=== PATIENT | female | born 1980 | race Caucasian/White ===

== ENCOUNTER 2024-04-02 13:40 | Emergency (ER) | payer SELFPAY ==
[2024-04-02 15:33] LABS: BASOPHILS ABSOLUTE AUTO 0.04 K/uL (0.00-0.20); BASOPHILS PERCENT AUTO 0.5 % (0.0-1.0); EOSINOPHILS ABSOLUTE AUTO 0.23 K/uL (0.00-0.45); HEMATOCRIT 45.8 % (37.0-47.0); HEMOGLOBIN 15.2 g/dL (12.0-16.0); IMMATURE GRAN ABSOLUTE AUTO 0.01 K/uL (0.00-0.05); IMMATURE GRAN PERCENT AUTO 0.1 % (0.0-0.4); LYMPHOCYTES ABSOLUTE AUTO 2.37 K/uL (1.00-4.80); LYMPHOCYTES PERCENT AUTO 30.9 % (24.0-44.0); MEAN CORPUSCULAR HEMOGLOBIN 29.5 pg (28.0-32.0); MEAN CORPUSCULAR HGB CONC 33.2 g/dL (32.0-36.0); MEAN CORPUSCULAR VOLUME 88.9 fL (83.0-99.0); MEAN PLATELET VOLUME 9.3 fL (9.4-12.3); MONOCYTES ABSOLUTE AUTO 0.65 K/uL (0.00-0.80); MONOCYTES PERCENT AUTO 8.5 % (0.0-8.0); NEUTROPHILS ABSOLUTE AUTO 4.37 K/uL (1.80-7.70); PLATELET COUNT,PLT 326 K/uL (150-400); RED BLOOD CELL COUNT 5.15 M/uL (4.10-5.30); WHITE BLOOD CELL COUNT,WBC 7.67 K/uL (3.9-11.3)
[2024-04-02] MEDS: Ketorolac 30 MG/ML SDV IVPUSH ONE (15:42)
[2024-04-02] MEDS: Ondansetron 4 MG/2 ML SDV IVPUSH ONE (15:42)
[2024-04-02] MEDS: Sodium Chloride 0.9% 1,000 ML IV ONE (15:42)
[2024-04-02] MEDS: LORazepam 2 MG/ML SDV IVPUSH ONE (15:42)
[2024-04-02] MEDS: Metoclopramide 5 MG Tab PO ONE (15:51)
[2024-04-02] MEDS: diphenhydrAMINE 50 MG/ML SDV IVPUSH ONE (15:51)
[2024-04-02 15:56] LABS: A/G RATIO 1.1 (0.9-1.6); ALBUMIN 3.4 g/dL (3.4-5.0); BILIRUBIN TOTAL 0.2 mg/dL (0.2-1.0); CALCIUM 8.4 mg/dL (8.5-10.1); CARBON DIOXIDE,CO2 28.3 mmol/L (21.0-32.0); EST CRCL DRUG DOSING (CG) 61.35 mL/min; MAGNESIUM 1.9 mg/dL (1.8-2.4); POTASSIUM,K 4.3 mmol/L (3.5-5.1); PROTEIN TOTAL,TP 6.6 g/dL (6.4-8.2)
== END 2024-04-02 17:04 | disposition home or self-care (01) ==
LOC: MW.ED 13:40
DX: G43.909 Migraine, unspecified, not intractable, without status migrainosus (principal); Z75.8 Other problems related to medical facilities and other health care; F17.210 Nicotine dependence, cigarettes, uncomplicated; Z88.5 Allergy status to narcotic agent; Z79.899 Other long term (current) drug therapy; Z90.710 Acquired absence of both cervix and uterus
CPT/HCPCS: 36415; 80053; 83735; 85025; 96361; 96374; 96375; 99283; J1885; J2060; J2405; J7030; 99284

== ENCOUNTER 2024-05-05 14:10 | Emergency (ER) | payer MEDICAID ==
[2024-05-05 15:28] LABS: CORONAVIRUS COVID-19 NAA POSITIVE (NEGATIVE); INFLUENZA A NAA NEGATIVE (NEGATIVE); INFLUENZA B NAA NEGATIVE (NEGATIVE); RESPIRATORY SYNCYTIAL VIR NAA NEGATIVE (NEGATIVE)
== END 2024-05-05 16:27 | disposition home or self-care (01) ==
LOC: MW.ED 14:10
DX: U07.1 COVID-19 (principal); Z79.84 Long term (current) use of oral hypoglycemic drugs; Z79.899 Other long term (current) drug therapy; Z88.5 Allergy status to narcotic agent
CPT/HCPCS: 0241U; 71045; 87651; 99284; 99283

== ENCOUNTER 2024-06-01 19:43 | Emergency (ER) | payer MEDICAID ==
[2024-06-01 20:19] LABS: BASOPHILS ABSOLUTE AUTO 0.04 K/uL (0.00-0.20); BASOPHILS PERCENT AUTO 0.3 % (0.0-1.0); EOSINOPHILS ABSOLUTE AUTO 0.17 K/uL (0.00-0.45); EOSINOPHILS PERCENT AUTO 1.5 % (0.0-6.0); HEMATOCRIT 44.5 % (37.0-47.0); HEMOGLOBIN 15.1 g/dL (12.0-16.0); IMMATURE GRAN ABSOLUTE AUTO 0.07 K/uL (0.00-0.05); IMMATURE GRAN PERCENT AUTO 0.6 % (0.0-0.4); LYMPHOCYTES ABSOLUTE AUTO 2.92 K/uL (1.00-4.80); LYMPHOCYTES PERCENT AUTO 25.5 % (24.0-44.0); MEAN CORPUSCULAR HEMOGLOBIN 30.1 pg (28.0-32.0); MEAN CORPUSCULAR HGB CONC 33.9 g/dL (32.0-36.0); MEAN CORPUSCULAR VOLUME 88.6 fL (83.0-99.0); MONOCYTES ABSOLUTE AUTO 0.98 K/uL (0.00-0.80); MONOCYTES PERCENT AUTO 8.6 % (0.0-8.0); NEUTROPHILS ABSOLUTE AUTO 7.25 K/uL (1.80-7.70); NEUTROPHILS PERCENT AUTO 63.5 % (41.0-71.0); PLATELET COUNT,PLT 332 K/uL (150-400); RED BLOOD CELL COUNT 5.02 M/uL (4.10-5.30); WHITE BLOOD CELL COUNT,WBC 11.43 K/uL (3.9-11.3)
[2024-06-01 20:20] LABS: BASE EXCESS VENOUS -2.6 (-2.0-3.0); BICARBONATE,VENOUS 24 mEQ/mL (22-28); PCO2 VENOUS 46 mmHG (41-51); PH,VENOUS 7.32 (7.31-7.41)
[2024-06-01 20:29] LABS: PO2 VENOUS < 30 mmHG (35-45)
[2024-06-01 20:40] LABS: CORONAVIRUS COVID-19 NAA NEGATIVE (NEGATIVE); INFLUENZA A NAA NEGATIVE (NEGATIVE); INFLUENZA B NAA NEGATIVE (NEGATIVE); RESPIRATORY SYNCYTIAL VIR NAA NEGATIVE (NEGATIVE)
[2024-06-01 21:05] LABS: A/G RATIO 0.9 (0.9-1.6); ALBUMIN 3.6 g/dL (3.4-5.0); BILIRUBIN TOTAL 0.3 mg/dL (0.2-1.0); CALCIUM 8.8 mg/dL (8.5-10.1); CARBON DIOXIDE,CO2 25.8 mmol/L (21.0-32.0); CREATININE 1.2 mg/dL (0.6-1.0); EST CRCL DRUG DOSING (CG) 48.97 mL/min; MAGNESIUM 2.1 mg/dL (1.8-2.4); POTASSIUM,K 4.1 mmol/L (3.5-5.1); PROTEIN TOTAL,TP 7.4 g/dL (6.4-8.2)
[2024-06-01] MEDS: Dexamethasone 4 MG Tab PO ONE (22:42)
== END 2024-06-01 22:51 | disposition home or self-care (01) ==
LOC: MW.ED 19:43
DX: J40 Bronchitis, not specified as acute or chronic (principal); U09.9 Post COVID-19 condition, unspecified; F17.290 Nicotine dependence, other tobacco product, uncomplicated; Z90.49 Acquired absence of other specified parts of digestive tract; Z90.710 Acquired absence of both cervix and uterus; Z79.899 Other long term (current) drug therapy; Z79.84 Long term (current) use of oral hypoglycemic drugs; Z88.5 Allergy status to narcotic agent
CPT/HCPCS: 0241U; 36415; 71046; 80053; 82803; 83735; 83880; 84484; 85025; 85379; 93005; 99285; J8540; 93010; 99283

== ENCOUNTER 2024-06-20 08:17 | Day surgery (SDC) | payer MEDICAID ==
[~2024-06-20 08:17] MED LIST: Sodium Chloride 0.9% 10 ML Syringe FLUSH PRN; Sodium Chloride 0.9% 2.5 ML Syringe FLUSH PRN; Sodium Chloride 0.9% 20 ML SDV IV PRN
[2024-06-20] MEDS: Lactated Ringers 1,000 ML IV SCH (08:57)
[2024-06-20] MEDS ORDERED: propofoL 50 ML ONE (09:56)
== END 2024-06-20 11:03 | disposition home or self-care (01) ==
LOC: MW.SDS 08:17
PROVIDERS: ATTEND Surgery
DX: Z12.11 Encounter for screening for malignant neoplasm of colon (principal); Z80.0 Family history of malignant neoplasm of digestive organs; E66.01 Morbid (severe) obesity due to excess calories; Z68.41 Body mass index [BMI] 40.0-44.9, adult
CPT/HCPCS: 45378; J2704; J7120; 00812

== ENCOUNTER 2024-11-04 21:06 | Emergency (ER) | payer MEDICAID ==
[2024-11-04] MEDS ORDERED: Sodium Chloride 0.9% 2.5 ML Syringe FLUSH PRN (21:52)
[2024-11-04] MEDS ORDERED: Sodium Chloride 0.9% 10 ML Syringe FLUSH PRN (21:52)
[2024-11-04] MEDS: droPERidol 2.5 MG/ML SDV IVPUSH ONE (21:59)
[2024-11-04] MEDS: Sodium Chloride 0.9% 1,000 ML IV ONE (22:01)
[2024-11-04] MEDS: Magnesium Sulf/Wat 2 GM/50 mL 2 GM in Premix Bag 1 BAG IV ONE (22:01)
[2024-11-04] MEDS: Ketorolac 30 MG/ML SDV IVPUSH ONE (22:01)
[2024-11-04 22:16] LABS: BASOPHILS ABSOLUTE AUTO 0.05 K/uL (0.00-0.20); BASOPHILS PERCENT AUTO 0.4 % (0.0-1.0); EOSINOPHILS ABSOLUTE AUTO 0.26 K/uL (0.00-0.45); EOSINOPHILS PERCENT AUTO 2.2 % (0.0-6.0); HEMATOCRIT 44.6 % (37.0-47.0); HEMOGLOBIN 14.7 g/dL (12.0-16.0); IMMATURE GRAN ABSOLUTE AUTO 0.04 K/uL (0.00-0.05); IMMATURE GRAN PERCENT AUTO 0.3 % (0.0-0.4); MEAN CORPUSCULAR HEMOGLOBIN 30.1 pg (28.0-32.0); MEAN CORPUSCULAR VOLUME 91.4 fL (83.0-99.0); MEAN PLATELET VOLUME 9.7 fL (9.4-12.3); MONOCYTES ABSOLUTE AUTO 1.11 K/uL (0.00-0.80); MONOCYTES PERCENT AUTO 9.2 % (0.0-8.0); NEUTROPHILS ABSOLUTE AUTO 7.09 K/uL (1.80-7.70); NEUTROPHILS PERCENT AUTO 58.9 % (41.0-71.0); PLATELET COUNT,PLT 308 K/uL (150-400); RED BLOOD CELL COUNT 4.88 M/uL (4.10-5.30); WHITE BLOOD CELL COUNT,WBC 12.05 K/uL (3.9-11.3)
[2024-11-04 22:40] LABS: CALCIUM 8.3 mg/dL (8.5-10.1); CARBON DIOXIDE,CO2 22.7 mmol/L (21.0-32.0); CREATININE 0.9 mg/dL (0.6-1.0); EST CRCL DRUG DOSING (CG) 64.61 mL/min; POTASSIUM,K 3.6 mmol/L (3.5-5.1)
== END 2024-11-05 01:51 | disposition home or self-care (01) ==
LOC: MW.ED 21:06
DX: G43.909 Migraine, unspecified, not intractable, without status migrainosus (principal); Z88.5 Allergy status to narcotic agent; Z79.899 Other long term (current) drug therapy; Z86.16 Personal history of COVID-19; Z90.49 Acquired absence of other specified parts of digestive tract
CPT/HCPCS: 36415; 80048; 84703; 85025; 96365; 96375; 99284; J1885; J3475; J7030